=== PATIENT | male | born 1965 | race Caucasian/White ===

== ENCOUNTER 2016-08-25 21:55 | Emergency (ER) | payer MEDICARE ==
[~2016-08-25 21:55] MED LIST: ALBUTEROL17 GM INH; ALPRAZOLAM; CLONIDINE HCL0.1 MG PO; EFFER-K 20 MEQ20 MEQ PO; GABAPENTIN300 M2 PO; IBUPROFEN PO; IBUPROFEN800 MG PO; KLONOPIN0.5 MG; KLONOPIN1 MG PO; LYRICA; LYRICA50 MG PO; MEDROL DOSEPAK4 MG PO; MEDROL4 MG/DOSE- PO; MOTRIN600 M1 PO; NEURONTIN; NEURONTIN300 MG; NEURONTIN300 MG PO; NO MEDICATIONS; NORCO 10/3251 TAB PO; OXYCODONE HCL10 MG; PAXIL; PREDNISONE PO; ROBAXIN 750750 M1 PO; ROBAXIN500 MG; ROBITUSSIN A-C S5 ML PO; SUDAFED PO; VICODIN 5/500 T1 TAB PO; VOLTAREN50 MG PO; ZITHROMAX1 G/PKT PO; ZOFRAN ODT4 MG PO
== END 2016-08-25 22:00 | disposition left against medical advice (07) ==
LOC: CED 21:55
DX: Z53.21 Procedure and treatment not carried out due to patient leaving prior to being seen by health care provider (principal)

== ENCOUNTER 2017-02-05 13:18 | Emergency (ER) | payer MEDICARE ==
[~2017-02-05] VITALS: Ht 175.3 cm; Wt 81.6 kg
== END 2017-02-05 15:39 | disposition home or self-care (01) ==
LOC: CFTX 13:18 → CED 13:18 → CFTX 14:01
DX: L60.0 Ingrowing nail (principal); M54.2 Cervicalgia; M54.9 Dorsalgia, unspecified; I10 Essential (primary) hypertension; K21.9 Gastro-esophageal reflux disease without esophagitis; F41.9 Anxiety disorder, unspecified; F17.210 Nicotine dependence, cigarettes, uncomplicated; Z88.0 Allergy status to penicillin; Z88.1 Allergy status to other antibiotic agents; Z88.5 Allergy status to narcotic agent
CPT/HCPCS: 82947; 99283